=== PATIENT | male | born 1985 | race Caucasian/White ===

== ENCOUNTER 2020-06-29 06:49 | Outpatient (NON) | payer BC, SELFPAY ==
[2020-06-29 22:20] LABS: SARS-CoV-2 RNA PCR Negative
== END 2020-06-29 06:50 ==
PROVIDERS: PCP Internal Medicine; Visit Provider Internal Medicine
DX: Z20.828 Contact with and (suspected) exposure to other viral communicable diseases (principal)
CPT/HCPCS: 87635; C9803; U0003